=== PATIENT | female | born 1980 | race Two or more races ===

== ENCOUNTER → 2024-06-04 | Outpatient (CLI) | payer OTHER, BC, SELFPAY ==
--- NOTE | 2024-06-04 09:15 | XR_ITS ---
Examination: Breast ultrasound, unilateral, left complete Date and time of exam: June 04, 2024 0856 hours INDICATIONS: Mammogram May 15, 2024 10 mm round mass indistinct margins outer left breast posterior depth Technique: Real-time kinney scale ultrasonographic imaging performed left breast including all 4 quadrants as well as nipple retroareolar and axillary region. Findings: No cystic or solid mass IMPRESSION: BI-RADS Category 1: Negative study
== END | disposition home or self-care (01) ==
PROVIDERS: PCP Family Medicine; Referring Provider Family Medicine; Visit Provider Family Medicine
DX: N63.20 Unspecified lump in the left breast, unspecified quadrant (principal)
CPT/HCPCS: 76641

== ENCOUNTER 2024-06-05 10:00 | Day surgery (SDC) | payer OTHER, BC, SELFPAY ==
[2024-06-04 10:15] LABS: HCG Qualitative,Urine Negative
[2024-06-04 15:23] VITALS: BMI 34.5
[2024-06-05] VITALS (8 sets, daily range): BP systolic 133–161; BP diastolic 72–101; PULSE 73–113; RESP 15–21; TEMP 36.3–37.2; O2SAT 97–100; BMI 34.3
[2024-06-05] MEDS: DiphenhydrAMINE INJ 50 MG/ML VIAL 25 MG IV (11:27)
[2024-06-05] MEDS: fentaNYL CIT INJ 50 mCg/ML AMP 2ML (ASD USE ONLY) IV (11:29)
[2024-06-05] MEDS: MIDAZOLAM INJ 1 MG/ML VIAL 2 ML (ASD USE ONLY) 2 MG IV (11:33)
[2024-06-05] MEDS: ONDANSETRON INJ 2 MG/ML INJ 2 ML 4 MG IV (11:51)
--- NOTE | 2024-06-05 13:22 | SUR.PHASEII ---
1145: Pt received in recovery. Report from Ashley HERRING. Pt groggy. Easily aroused. Resp even, unlabored. VS stable. No c/o pain, discomfort. 1151: Received new order for Zofran which was given at this time. 1210: Pt more awake, alert. Sitting up tolerating po fluids with no difficulty swallowing and no n/v. 1230: Pt fully awake, oriented x3. Pt assisted to restroom. Ambulation steady. Pt and stated understanding of discharge instructions. Pt discharged from [facility] in stable condition.
== END 2024-06-05 12:30 | disposition home or self-care (01) ==
PROVIDERS: PCP Family Medicine; Referring Provider Specialist; Visit Provider Specialist
PROC: 0DBE8ZX Excision of Large Intestine, Via Natural or Artificial Opening Endoscopic, Diagnostic (ICD-10-PCS; CPT 45380; principal; 2024-06-05 10:00)
DX: Z12.11 Encounter for screening for malignant neoplasm of colon (principal); K64.9 Unspecified hemorrhoids; K57.30 Diverticulosis of large intestine without perforation or abscess without bleeding
CPT/HCPCS: 45378; 81025; J1200; J2250; J2405; J3010